=== PATIENT | female | born 1995 | race Caucasian/White ===

== ENCOUNTER 2018-02-21 00:57 | Emergency (ER) | payer BC, OTHER ==
[~2018-02-21] VITALS: Ht 167.6 cm; Wt 64.7 kg
[2018-02-21 01:00] VITALS: TEMP 36.7; Ht 167.6 cm; Wt 64.7 kg
[2018-02-21] MEDS ORDERED: ONDANSETRON INJ 2 MG/ML 2 ML VIAL IV STA (01:09)
[2018-02-21] MEDS ORDERED: GI COCKTAIL PO ONE (01:15)
[2018-02-21] MEDS ORDERED: PANTOprazole INJ 40 MG in SYRINGE 0 ML IV ONE (01:15)
[2018-02-21] MEDS ORDERED: SODIUM CHLORIDE 0.9% 1000ML 1,000 ML IV ONE ×2 (01:15)
[2018-02-21] MEDS ORDERED: LIDOCAINE HCL 2% VISC SOLN 20 ML UDC ONE (01:22)
[2018-02-21] MEDS ORDERED: ALUMINUM/MAGNESIUM SUSP 30 ML UDC ONE (01:22)
[2018-02-21 01:43] LABS: HEMATOCRIT 30.1 % (37-47); HEMOGLOBIN 8.8 g/dL (12.0-16.0); MEAN CELL VOLUME 63.8 fL (80-100); MEAN CORPUSCULAR HEMOGLOBIN 18.6 pg (25-34); MEAN CORPUSCULAR HGB CONC 29.2 g/dl (32-36); MEAN PLATELET VOLUME 9.9 fL (7.4-10.4); PLATELET COUNT 380 K/uL (130-400); RED CELL DISTRIBUTION WIDTH CV 17.9 % (11.5-14.5); RED CELL DISTRIBUTION WIDTH SD 41.2 fL (36.4-46.3)
[2018-02-21 01:54] LABS: ALBUMIN 4.3 gm/dl (3.4-5.0); ALKALINE PHOSPHATASE 104 U/L (45-117); ALT/SGPT 21 U/L (12-78); AST/SGOT 23 U/L (15-37); BLOOD UREA NITROGEN 7 mg/dl (7-18); CALCIUM 9.4 mg/dl (8.5-10.1); CARBON DIOXIDE 25 mmol/L (21-32); CREATININE 0.58 mg/dl (0.60-1.20); GLUCOSE 126 mg/dl (70-99); LIPASE 113 U/L (73-393); POTASSIUM 3.7 mmol/L (3.5-5.1); SODIUM 135 mmol/L (136-145); TOTAL PROTEIN 9.3 gm/dl (6.4-8.2)
[2018-02-21 02:08] LABS: BASO % 0.1 %; BASO ABS # 0.01 K/uL (0-0.2); IG# 0.02 K/uL (0.00-0.02); LYMPH % 12.5 %; LYMPH ABS # 1.01 K/uL (1.2-3.4); MONO % 1.6 %; MONO ABS # 0.13 K/uL (0.11-0.59); NEUT % 85.6 %; NEUT ABS # 6.93 K/uL (1.4-6.5)
[2018-02-21] MEDS ORDERED: ONDANSETRON HOME PACK 4MG OD TAB PO ONE (03:15)
[2018-02-21] MEDS ORDERED: PANT40TA PO (03:16)
[2018-02-21 03:23] VITALS: BP 113/78; PULSE 61; O2SAT 96
--- NOTE | 2018-02-21 07:28 | DIAGNOSTIC IMAGING REPORT ---
PA CHEST WITH ABDOMINAL SERIES CLINICAL HISTORY: Epigastric abdominal pain. FINDINGS: A PA chest radiograph is obtained. No prior studies are available for comparison at the time of dictation. The cardiomediastinal silhouette is unremarkable. The lungs and pleural spaces are clear. Nipple shadows project over the lung bases. No pneumothorax is seen. The bony thorax is grossly intact. Supine and erect abdominal radiographs are obtained. No prior studies are available for comparison at the time of dictation. There is a nonobstructed abdominal bowel gas pattern. No evidence of intraperitoneal free air is seen. There are no abnormal abdominal calcifications. The lumbosacral spine and bony pelvis appear intact. IMPRESSION: 1. No active disease in the chest. 2. Nonobstructed abdominal bowel gas pattern. Electronically signed by: Javier Solorio M.D. 02/21/2018 7:27 AM Dictated Date/Time: 02/21/2018 7:26 AM
--- NOTE | 2018-02-21 23:22 | EMERGENCY ROOM VISIT NOTE ---
History First contact with patient: 01:03 Chief Complaint: ABDOMINAL PAIN Stated Complaint: ABDOMINAL PAIN X 48HRS Nursing Triage Summary: Patient with mid upper abdominal pain nause vomitting and diarrhea since Monday. History of Present Illness The patient is a 22 year old female who presents to the Emergency Room with complaints of epigastric abdominal pain, nausea, vomiting, diarrhea for the past 24-36 hours. The patient considers himself usually healthy and has not taken anything [id number] for her symptoms. Patient is accompanied by her mother. The patient has not had recent travel history or been on recent antibiotics. The patient primarily had watery emesis this morning and has had decreased appetite. She denies chance of . She does not have lower abdominal pain. She rates her discomfort a 6/10. Review of Systems More than 10 systems were reviewed and otherwise negative with the exception of history of present illness. Past Medical/Surgical History No chronic medical disease Family History No pertinent family history Social History Smoking Status: Never Smoker Marital Status: single Housing Status: lives with family Occupation Status: student Current/Historical Medications Scheduled Pantoprazole (Protonix), 40 MG PO DAILY Physical Exam Vital Signs Date Time Temp Pulse Resp B/P (MAP) Pulse Ox O2 Delivery O2 Flow Rate FiO2 02/21/18 03:23 61 14 113/78 96 02/21/18 01:56 53 16 102/68 100 Room Air 02/21/18 01:00 36.7 63 18 132/83 97 Room Air Physical Exam VITALS: Vitals are noted on the nurse's note and reviewed by myself. Vital signs stable. GENERAL: Well-developed, well-nourished, white female, who is in no acute distress and resting comfortably. Patient is cooperative with the examination. HEAD: Normocephalic atraumatic. HEART: Regular rate and rhythm without murmurs gallops or rubs. LUNGS: Clear to auscultation bilaterally without wheezes, rales or rhonchi. No retractions or accessory muscle use. ABDOMEN: Positive normal bowel sounds x 4. Soft with mild epigastric tenderness. No rebound or guarding. No lower abdominal tenderness. No CVA tenderness. MUSCULOSKELETAL: No muscle atrophy, erythema, or edema noted. Full range of motion in all extremities. No tenderness to palpation. Medical Decision & Procedures ER Provider Diagnostic Interpretation: PA CHEST WITH ABDOMINAL SERIES CLINICAL HISTORY: Epigastric abdominal pain. FINDINGS: A PA chest radiograph is obtained. No prior studies are available for comparison at the time of dictation. The cardiomediastinal silhouette is unremarkable. The lungs and pleural spaces are clear. Nipple shadows project over the lung bases. No pneumothorax is seen. The bony thorax is grossly intact. Supine and erect abdominal radiographs are obtained. No prior studies are available for comparison at the time of dictation. There is a nonobstructed abdominal bowel gas pattern. No evidence of intraperitoneal free air is seen. There are no abnormal abdominal calcifications. The lumbosacral spine and bony pelvis appear intact. IMPRESSION: 1. No active disease in the chest. 2. Nonobstructed abdominal bowel gas pattern. Laboratory Results 02/21/18 01:25 Red Blood Count 4.72, Mean Corpuscular Volume 63.8, Mean Corpuscular Hemoglobin 18.6, Mean Corpuscular Hemoglobin Concent 29.2, Mean Platelet Volume 9.9, Neutrophils (%) (Auto) 85.6, Lymphocytes (%) (Auto) 12.5, Monocytes (%) (Auto) 1.6, Eosinophils (%) (Auto) 0.0, Basophils (%) (Auto) 0.1, Neutrophils # (Auto) 6.93, Lymphocytes # (Auto) 1.01, Monocytes # (Auto) 0.13, Eosinophils # (Auto) 0.00, Basophils # (Auto) 0.01 02/21/18 01:25 Test 02/21/18 00:00 02/21/18 01:25 Urine Color ORANGE Urine Appearance CLOUDY (CLEAR) Urine pH 5.0 (4.5-7.5) Urine Specific [place] 1.028 (1.000-1.030) Urine Protein 2+ (NEG) Urine Glucose (UA) NEG (NEG) Urine Ketones NEG (NEG) Urine Occult Blood 3+ (NEG) Urine Nitrite NEG (NEG) Urine Bilirubin NEG (NEG) Urine Urobilinogen NEG (NEG) Urine Leukocyte Esterase TRACE (NEG) Urine WBC (Auto) 1-5 /hpf (0-5) Urine RBC (Auto) >30 /hpf (0-4) Urine Hyaline Casts (Auto) 1-5 /lpf (0-5) Urine Epithelial Cells (Auto) >30 /lpf (0-5) Urine Bacteria (Auto) NEG (NEG) Urine Test NEG (NEG) White Blood Count 8.10 K/uL (4.8-10.8) Red Blood Count 4.72 M/uL (4.2-5.4) Hemoglobin 8.8 g/dL (12.0-16.0) Hematocrit 30.1 % (37-47) Mean Corpuscular Volume 63.8 fL (80-100) Mean Corpuscular Hemoglobin 18.6 pg (25-34) Mean Corpuscular Hemoglobin Concent 29.2 g/dl (32-36) Platelet Count 380 K/uL (130-400) Mean Platelet Volume 9.9 fL (7.4-10.4) Neutrophils (%) (Auto) 85.6 % Lymphocytes (%) (Auto) 12.5 % Monocytes (%) (Auto) 1.6 % Eosinophils (%) (Auto) 0.0 % Basophils (%) (Auto) 0.1 % Neutrophils # (Auto) 6.93 K/uL (1.4-6.5) Lymphocytes # (Auto) 1.01 K/uL (1.2-3.4) Monocytes # (Auto) 0.13 K/uL (0.11-0.59) Eosinophils # (Auto) 0.00 K/uL (0-0.5) Basophils # (Auto) 0.01 K/uL (0-0.2) RDW Standard Deviation 41.2 fL (36.4-46.3) RDW Coefficient of Variation 17.9 % (11.5-14.5) Immature Granulocyte % (Auto) 0.2 % Immature Granulocyte # (Auto) 0.02 K/uL (0.00-0.02) Hypochromasia PRESENT Microcytosis PRESENT Ovalocytes 1+ Anion Gap 7.0 mmol/L (3-11) Est Creatinine Clear Calc Drug Dose 144.8 ml/min Estimated GFR () > 150.0 Estimated GFR (Non- 132.7 BUN/Creatinine Ratio 12.3 (10-20) Calcium Level 9.4 mg/dl (8.5-10.1) Total Bilirubin 0.8 mg/dl (0.2-1) Aspartate Amino Transf (AST/SGOT) 23 U/L (15-37) Alanine Aminotransferase (ALT/SGPT) 21 U/L (12-78) Alkaline Phosphatase 104 U/L (45-117) Total Protein 9.3 gm/dl (6.4-8.2) Albumin 4.3 gm/dl (3.4-5.0) Globulin 5.0 gm/dl (2.5-4.0) Albumin/Globulin Ratio 0.9 (0.9-2) Lipase 113 U/L (73-393) Medications Administered Medications (Trade) Dose Ordered Sig/Shanon Route Start Time Stop Time Status Last Admin Dose Admin Sodium Chloride 1,000 ml @ 999 mls/hr Q1H1M ONCE IV 02/21/18 01:15 02/21/18 02:15 DC 02/21/18 01:30 999 MLS/HR Sodium Chloride 1,000 ml @ 999 mls/hr Q1H1M ONCE IV 02/21/18 01:15 02/21/18 02:15 DC 02/21/18 01:30 999 MLS/HR Ondansetron HCl (Zofran Inj) 4 mg NOW STAT IV 02/21/18 01:09 02/21/18 01:15 DC 02/21/18 01:30 4 MG Pantoprazole Sodium 40 mg/ Syringe 10 ml @ 5 mls/min NOW ONCE IV 02/21/18 01:15 02/21/18 01:16 DC 02/21/18 01:38 5 MLS/MIN Lidocaine HCl (Viscous Lidocaine 2% Soln) 20 ml STK-MED ONCE .ROUTE 02/21/18 01:22 02/21/18 01:23 DC 02/21/18 01:29 20 ML Al Hydroxide/Mg Hydroxide (Maalox Susp) 30 ml STK-MED ONCE .ROUTE 02/21/18 01:22 02/21/18 01:23 DC 02/21/18 01:30 30 ML Ondansetron HCl (ZOFRAN ODT 4MG Home Pack) 1 homepack UD ONCE PO 02/21/18 03:15 02/21/18 03:16 DC 02/21/18 03:19 1 HOMEPACK ED Course Physical exam and history were performed. Nursing notes, EMR, and Medication List were personally reviewed. Patient appears to have nausea and vomiting symptoms with some diarrhea for the past 24-36 hours. On examination the patient does have some minimally notable tenderness in the epigastric area. There is no lower abdominal tenderness. The patient does not appear toxic. IV access was established and labs were obtained. The patient was hydrated and medicated as above. X-rays were performed and reviewed by myself and radiology as showing no significant acute process. The patient's blood work is as above and was reviewed. She does not have a significantly elevated white blood cell count or gross electrolyte imbalance. The patient is anemic at 8.8, and this may be related to an iron deficiency process based on her indices. I did discuss this finding with the patient, and while she is not vegan or vegetarian, she states that she has been specifically avoiding eating meat over the past 3-4 months. This certainly could be contributing to her symptoms. Patient does not appear or with signs of UTI. Lipase and transaminases are not diagnostic. Overall the patient had significant improvement of her symptoms after nausea medication. She did not have recurrent emesis here in the department, and she does not have any worsening of her abdomen on reevaluation. Clinically I suspect that her symptoms are likely viral or foodborne in nature. I did discuss the importance of follow-up with her primary care physician. She may wish to start an iron supplement with a stool softener if she continues to avoid eating meat. The patient certainly could have an upper GI issue, and I will give her a short course of Protonix, although I do not suspect an acute upper GI bleed. The patient did defer stool testing. The patient and mother were both pleased with this plan. The patient was certainly invited back to the ER with any new, worsening, or concerning symptoms. The chart was completed utilizing [employer] Voice Recognition Software. Grammatical errors, random word insertions, pronoun errors, and incomplete sentences are an occasional consequence of this system due to software limitations, ambient noise, and hardware issues. Any formal questions or concerns about the content, text, or information contained within the body of this dictation should be directly addressed to the provider for clarification. . Medical Decision Differential diagnosis: Etiologies such as gastroenteritis, food borne illness, infections, appendicitis , diverticulitis, inflammatory bowel disease, obstruction, GI bleed, biliary pathology, as well as others were entertained. Impression Primary Impression: Nausea and vomiting Additional Impression: Anemia Departure Information Dispostion Home / Self-Care Condition GOOD Prescriptions Pantoprazole (Protonix) 40 Mg Tab 40 MG PO DAILY for 14 Days, #14 TAB Prov: Sahil Queen PA-C 02/21/18 Forms HOME CARE DOCUMENTATION FORM, IMPORTANT VISIT INFORMATION Patient Instructions My [facility] Additional Instructions You were seen and evaluated today on an emergency basis only. This is not a substitute for, or an effort to provide, complete comprehensive medical care. It is not possible to recognize and treat all injuries or illnesses in a single emergency department visit. For this reason it is recommended that you followup with your primary care physician this week for ongoing care and evaluation. Drink plenty of fluids and remain well-hydrated. Zofran 4 mg ODT: Dissolve 1 tablet every 6 hrs as needed for nausea. Increase dietary iron. This is often through eating red meat or taking a daily iron supplement. Iron supplements will often cause constipation, and you may wish to take an [id number] stool softener like Colace. Take Protonix daily for the next 2 weeks. You are welcome to return to the emergency department anytime with new, worsening, or concerning symptoms. Problem Qualifiers
== END 2018-02-21 03:23 | disposition home or self-care (01) ==
LOC: C.EDB 00:58 → C.EDA 03:23
DX: R11.2 Nausea with vomiting, unspecified (principal); D64.9 Anemia, unspecified; R19.7 Diarrhea, unspecified